=== PATIENT | female | born 1990 | race Caucasian/White ===

== ENCOUNTER 2021-01-26 11:20 | Emergency (ER) | payer OTHER ==
[2021-01-26 11:38] VITALS: BP 103/57; PULSE 111
--- NOTE | 2021-01-26 12:10 | EDM.PDOC ---
ED HPI GENERAL MEDICAL PROBLEM - General Chief Complaint: General Stated Complaint: STARTED IRON INFUSION 01/25 28 WEEKS PREG-NOW PASSI Time Seen by Provider: 01/26/21 11:59 Source of Information: Reports: Patient, Family, RN Notes Reviewed History Limitations: Reports: No Limitations - History of Present Illness INITIAL COMMENTS - FREE TEXT/NARRATIVE: 30-year-old female presents emergency department today complaint of near syncope, she is currently 28 weeks intrauterine gestation has been doing iron infusion recently completed the dose of Venofer yesterday following this event about 30 minutes felt very lightheaded felt like she was going to pass out was able to catch herself she did not fall or hit the ground. This morning she awoke with a headache took some Tylenol and now has resolved but she does not feel quite right. Did have blood work done for her iron studies CBC was within normal limits on 2 days prior, positive movement no large gush of fluids no vaginal bleeding no cramping abdominal discomfort - Related Data Allergies Allergy/AdvReac Type Severity Reaction Status Date / Time No Known Allergies Allergy Verified 01/26/21 11:31 Home Meds: Home Meds Acetaminophen [Tylenol] 650 mg PO Q6HR PRN 06/10/16 [History] traZODone 25 - 50 mg PO BEDTIME PRN 06/10/16 [History] valACYclovir [Valtrex] 2,000 mg PO .Q12H PRN 06/10/16 [History] Ondansetron [Zofran ODT] 4 mg PO Q4H PRN #30 tab.dis 05/09/18 [Rx] Hyoscyamine [Levsin] 0.125 - 0.25 mg PO Q4HR PRN #30 tab 05/20/18 [Rx] Ondansetron [Zofran ODT] 4 mg PO Q6H PRN #7 tab.dis 05/20/18 [Rx] hydrOXYzine HCL [Atarax] 25 mg PO BEDTIME 01/26/21 [History] Past Medical History HEENT History: Reports: Impaired Vision Other HEENT History: wears glasses Cardiovascular History: Reports: Hypertension Other Cardiovascular History: pg caused pre-eclampsia ok now Gastrointestinal History: Reports: Cholelithiasis, GERD, Hiatal Hernia [employer] History: Reports: Endometriosis, Other [employer]OR History: leap procedure PCOS Musculoskeletal History: Reports: Fracture, Fibromyalgia Other Musculoskeletal History: fx of pelvic and tailbone fx Neurological History: Reports: Headaches, Chronic, Migraines Psychiatric History: Reports: ADHD, Anxiety, Depression Endocrine/Metabolic History: Reports: Obesity/BMI 30+, Vitamin D Deficiency Hematologic History: Reports: None, Other (See Below) Other Hematologic History: A- Dermatologic History: Reports: Benign Melanoma - Infectious Disease History Infectious Disease History: Reports: Chicken Pox, Human Papilloma Virus (HPV) - Past Surgical History Head Surgeries/Procedures: Reports: None HEENT Surgical History: Reports: Other (See Below) Other HEENT Surgeries/Procedures: punch procedure mole left neck-neg Cardiovascular Surgical History: Reports: None GI Surgical History: Reports: Appendectomy, Bariatric Procedure, Cholecystectomy, Colonoscopy, EGD Female Surgical History: Reports: None Endocrine Surgical History: Reports: None Neurological Surgical History: Reports: None Musculoskeletal Surgical History: Reports: None Dermatological Surgical History: Reports: Other (See Below) Social & Family History - Family History Family Medical History: No Pertinent Family History HEENT: Reports: Impaired Vision, Otitis Media Respiratory: Reports: Asthma GI: Reports: Chronic Diarrhea OBGYN: Reports: Dysfunctional uterine bleeding Musculoskeletal: Reports: Arthritis Neurological: Reports: Migraines Psychiatric: Reports: Anxiety, Depression Endocrine/Metabolic: Reports: Diabetes, type II Oncologic: Reports: Other (See Below) Other Oncologic Family History: melanoma - Tobacco Use Tobacco Use Status *Q: Never Tobacco User Second Hand Smoke Exposure: No - Caffeine Use Caffeine Use: Reports: Coffee, Soda - Recreational Drug Use Recreational Drug Use: No ED ROS GENERAL - Review of Systems Review Of Systems: See Below Constitutional: Reports: No Symptoms HEENT: Reports: No Symptoms Respiratory: Reports: No Symptoms Cardiovascular: Reports: Syncope. Denies: Chest Pain, Dyspnea on Exertion GI/Abdominal: Reports: No Symptoms ED EXAM, GENERAL - Physical Exam Exam: See Below Exam Limited By: No Limitations General Appearance: Alert, WD/WN, No Apparent Distress Respiratory/Chest: No Respiratory Distress, Lungs Clear, Normal Breath Sounds, No Accessory Muscle Use, Chest Non-Tender Cardiovascular: Regular Rate, Rhythm, No Murmur GI/Abdominal: Soft, Non-Tender #1 Interpretation EKG Date: 01/26/21 Time: 13:04 Rhythm: NSR [place]: Normal P-Wave: Present QRS: Normal ST-T: Normal QT: Normal Comparison: NA - No Prior EKG Course - Vital Signs Last Recorded V/S: Last Vital Signs Temp 98 F 01/26/21 11:34 Pulse 111 H 01/26/21 11:34 Resp 12 01/26/21 11:34 BP 103/57 L 01/26/21 11:34 Pulse Ox 100 01/26/21 11:34 - Orders/Labs/Meds Orders: Active Orders 24 hr Category Date Time Status EKG Documentation Completion [RC] ASDIRECTED Care 01/26/21 12:05 Active EKG 12 Lead [EK] Stat Ther 01/26/21 12:05 Ordered Labs: Laboratory Tests 01/26/21 Range/Units 13:11 Urine Color Yellow (YELLOW) Urine Appearance Slightly cloudy A (CLEAR) Urine pH 7.0 (5.0-8.0) Ur Specific [place] 1.020 (1.008-1.030) Urine Protein 30 H (NEGATIVE) mg/dL Urine Glucose (UA) Negative (NEGATIVE) mg/dL Urine Ketones Negative (NEGATIVE) mg/dL Urine Occult Blood Negative (NEGATIVE) Urine Nitrite Negative (NEGATIVE) Urine Bilirubin Negative (NEGATIVE) Urine Urobilinogen 0.2 (0.2-1.0) EU/dL Ur Leukocyte Esterase Negative (NEGATIVE) Urine RBC Not seen (0-5) Urine WBC Not seen (0-5) Ur Epithelial Cells Moderate Amorphous Sediment Few Urine Bacteria Few Urine Mucus Not seen Departure - Departure Time of Disposition: 13:53 Disposition: Home, Self-Care 01 Condition: Fair Clinical Impression: Near syncope - Discharge Information Instructions: Near-Syncope, [id number] Referrals: Yeni Rust CNM [Primary Care Provider] - Forms: ED Department Discharge Additional Instructions: Continue with your current medications, continue to push fluids, please keep your follow-up appointment with your OB provider call return to the emergency department worsening of symptoms Sepsis Event Note (ED) - Evaluation Sepsis Screening Result: No Definite Risk - Focused Exam Vital Signs: Vital Signs Temp Pulse Resp BP Pulse Ox 01/26/21 11:34 98 F 111 H 12 103/57 L 100 01/26/21 11:28 98 F 111 H 12 103/57 L 100 - My Orders Last 24 Hours: My Active Orders 01/26/21 12:05 EKG Documentation Completion [RC] ASDIRECTED EKG 12 Lead [EK] Stat - Assessment/Plan Last 24 Hours: My Active Orders 01/26/21 12:05 EKG Documentation Completion [RC] ASDIRECTED EKG 12 Lead [EK] Stat Plan: Assessment Acuity = acute Site and laterality = near syncope Etiology = unknown Manifestations = none Location of injury = Home Lab values = urinalysis does show specific gravity 1.02 EKG unremarkable, heart tones at 140 Plan Both the Dayana for and the hydroxyzine can cause dizziness and lightheadedness both are new medications she is can stop the hydroxyzine for now continue with her iron infusions continue to push fluids, This note was dictated using [employer] voice recognition software please call with any questions on syntax or grammar.
== END 2021-01-26 14:02 | disposition home or self-care (01) ==
LOC: JP.ED 11:20
DX: R55 Syncope and collapse (principal); I10 Essential (primary) hypertension; E66.9 Obesity, unspecified; Z68.26 Body mass index [BMI] 26.0-26.9, adult; Z79.899 Other long term (current) drug therapy
CPT/HCPCS: 81001; 93005; 99284-25

== ENCOUNTER 2024-02-14 07:10 | Day surgery (SDC) | payer BC, OTHER ==
[2024-02-14] MEDS ORDERED: Propofol 200 MG/20 ML SDV ONE (07:25)
[2024-02-14] MEDS ORDERED: fentaNYL 50 MCG/ML SDV ONE (07:26)
[2024-02-14] MEDS ORDERED: Midazolam 1 MG/ML 2 ML SDV ONE (07:26)
[2024-02-14] MEDS: Lactated Ringers 1,000 ML IV ONE (07:32)
[2024-02-14] MEDS: Cyanocobalamin (Vitamin B12) 1,000 MCG/ML SDV IM ONE (08:12)
[2024-02-14] MEDS: MVI, Adult with Vitamin K 10 ML, Thiamine 200 MG, Zinc/Copper/Manganese/Selenium 1 ML i... IV ONE (08:26)
[2024-02-14 11:06] VITALS: BP 89/50; PULSE 90
== END 2024-02-14 11:06 | disposition home or self-care (01) ==
LOC: JP.SDS 07:10
PROVIDERS: ATTEND Surgery
DX: K91.89 Other postprocedural complications and disorders of digestive system (principal); F32.A Depression, unspecified; F41.9 Anxiety disorder, unspecified
CPT/HCPCS: 00731-QZ; 81025; C1726; J2250; J2704; J3010; J3411; J3420; J3490; J7120

== ENCOUNTER 2025-03-12 17:38 | Emergency (ER) | payer BC ==
[2025-03-12] MEDS ORDERED: Sodium Chloride 0.9% 10 ML Syringe FLUSH PRN (18:07)
[2025-03-12 18:13] LABS: BASOPHILS ABSOLUTE AUTO 0.04 K/uL (0.00-0.10); BASOPHILS PERCENT AUTO 0.6 % (0.1-1.3); EOSINOPHILS ABSOLUTE AUTO 0.06 K/uL (0.00-0.40); EOSINOPHILS PERCENT AUTO 0.9 % (0.0-5.4); IMMATURE GRAN ABSOLUTE AUTO 0.02 K/uL (0.00-0.23); IMMATURE GRAN PERCENT AUTO 0.3 % (0.0-0.7); LYMPHOCYTES ABSOLUTE AUTO 1.99 K/uL (0.8-3.3); LYMPHOCYTES PERCENT AUTO 28.5 % (11.4-47.7); MONOCYTES ABSOLUTE AUTO 0.40 K/uL (0.20-0.90); MONOCYTES PERCENT AUTO 5.7 % (3.3-12.6); NEUTROPHILS ABSOLUTE AUTO 4.48 K/uL (1.0-7.6); NEUTROPHILS PERCENT AUTO 64.0 % (40.0-78.1); PLATELET COUNT,PLT 277 K/uL (130-375); RED BLOOD CELL COUNT 4.73 M/uL (3.77-5.24); WHITE BLOOD CELL COUNT,WBC 7.0 K/uL (3.2-11.0)
[2025-03-12] MEDS: fentaNYL 100 MCG/2 ML SDV IVPUSH ONE (18:25)
[2025-03-12] MEDS: Ondansetron 4 MG/2 ML SDV IVPUSH ONE (18:25)
[2025-03-12 18:27] LABS: A/G RATIO 1.3 (1.2-2.2); ALANINE AMINOTRANSFERASE,ALT 38 U/L (12-78); ASPARTATE AMNIOTRANSFERASE,AST 24 U/L (15-37); BILIRUBIN TOTAL 0.8 mg/dL (0.2-1.0); BLOOD UREA NITROGEN,BUN 18 mg/dL (7-18); CARBON DIOXIDE,CO2 32 mmol/L (21-32); CHLORIDE,CL 105 mmol/L (100-108); CREATININE 0.9 mg/dL (0.6-1.0); EST CRCL DRUG DOSING (CG) 69.66 mL/min; ESTIMATED GFR 86 mL/min (>60); GLUCOSE RANDOM 109 mg/dL (74-106); POTASSIUM,K 4.0 mmol/L (3.6-5.2); PROTEIN TOTAL,TP 7.5 g/dL (6.4-8.2); SODIUM,NA 141 mmol/L (140-148)
[2025-03-12] MEDS: Lactated Ringers 1,000 ML IV SCH (18:29)
[2025-03-12 18:36] LABS: APPEARANCE,URINE CLEAR (CLEAR); GLUCOSE,URINE NEGATIVE (NEGATIVE); OCCULT BLOOD,URINE NEGATIVE (NEGATIVE)
[2025-03-12 18:46] LABS: SQUAMOUS EPITHELIAL CELLS,UR MODERATE /HPF; UROTHELIAL CELLS,URINE NOT SEEN /HPF
[2025-03-12] MEDS: Iopamidol 612 MG/ML 100 ML Bottle IV SCH (18:58)
[2025-03-12] MEDS: Hyoscyamine 0.125 MG Tab.SL SL ONE (20:28)
[2025-03-12 21:13] VITALS: BP 106/60; PULSE 68
[2025-03-12] MEDS: Ketorolac 30 MG/ML SDV IVPUSH ONE (21:30)
== END 2025-03-12 22:12 | disposition home or self-care (01) ==
LOC: JP.ED 17:38
DX: R10.32 Left lower quadrant pain (principal); Z79.899 Other long term (current) drug therapy; Z90.49 Acquired absence of other specified parts of digestive tract
CPT/HCPCS: 36415; 74177; 80053; 81001; 83605; 83690; 84703; 85025; 96361; 96374; 96375; 99284; A9270; J1885; J2405; J3010; J7120; Q9967